=== PATIENT | female | born 1960 | race Caucasian/White ===

== ENCOUNTER 2020-11-27 13:03 | Outpatient (REF) | payer MEDICAID, SELFPAY ==
--- NOTE | 2020-11-27 | MM_ITS ---
EXAMINATION: MM SCREENING DIGITAL BREAST TOMOSYNTHESIS, BILATERAL CLINICAL INFORMATION: Screening. Asymptomatic. The lifetime risk of breast cancer based on the Tyrer-Cuzick Model is 5%. COMPARISON: Mammography: 09/17/2018, 09/13/2017, 07/16/2015 TECHNIQUE: Digital breast tomosynthesis is performed in both the craniocaudal and mediolateral oblique views along with computer-aided detection (CAD). Synthesized 2D images are generated from the tomosynthesis. FINDINGS: There are scattered areas of fibroglandular density (ACR BI-RADS breast composition Category b). Parenchymal pattern is similar to prior studies. Minor nodularity retroareolar left breast is stable. There is no developing density or interval mass or architectural abnormality. No abnormal calcifications. The axilla and skin contours are unremarkable. MM/MM tomosynthesis screening BI IMPRESSION: No significant changes from prior exams. ASSESSMENT: BI-RADS 2: Benign RECOMMENDATION: Routine annual mammography screening. This patient's information was entered into a reminder system with a target due date for their next mammogram.
== END 2020-11-27 13:04 | disposition home or self-care (01) ==
LOC: HO.MAMMO 13:03
PROVIDERS: Visit Provider Advanced Practice Midwife
DX: Z12.31 Encounter for screening mammogram for malignant neoplasm of breast (principal)
CPT/HCPCS: 77063; 77067

== ENCOUNTER 2024-04-22 08:49 | Outpatient (REF) | payer MEDICAID, SELFPAY ==
--- NOTE | ~2024-04-22 | US_ITS ---
EXAMINATION: US ABDOMEN LIMITED CLINICAL INFORMATION: Abnormal gallbladder evaluation in the past. COMPARISON: Ultrasound abdomen complete 11/28/2022. MRI abdomen 03/21/2017. TECHNIQUE: Real-time imaging of the right upper quadrant abdominal viscera. FINDINGS: PANCREAS: Normal head and body, tail is obscured by bowel gas. LIVER: The liver contour is normal. Parenchymal echogenicity is normal. There are a few complex cysts, the largest in each lobe is: Left lobe 1.7 x 0.9 x 1.9, right lobe 2.5 x 2.0 x 2.1 cm There is no intrahepatic biliary duct dilatation seen. GALLBLADDER: 2 stones are seen within the gallbladder. The gallbladder is physiologically distended. Multiple mobile gallstones are present. No evidence of gallbladder wall thickening or pericholecystic fluid. No sonographic Cunningham's sign COMMON BILE DUCT: Normal in caliber measuring 0.6 cm in diameter. RIGHT KIDNEY: There are multiple complex and simple cysts, the largest is a complex cyst in the mid kidney, measures 2.8 x 1.5 x 1.5 cm. 0.5 x 0.2 x 0.3 cm nonobstructing calculus is seen in the mid kidney. No hydronephrosis The kidney measures 11.7 cm in maximum dimension. FREE FLUID: None. US/US abdomen limited IMPRESSION: 1. Cholelithiasis. No evidence of cholecystitis. 2. Multiple complex hepatic cysts with septations accompany the polycystic disease process. 3. Polycystic kidney disease. Multiple right renal cysts, largest of which demonstrates septations. No mass lesion. 4. 0.5 cm nonobstructing calculus in the mid right kidney.
== END 2024-04-22 08:50 | disposition home or self-care (01) ==
LOC: HO.US 08:49
PROVIDERS: PCP Internal Medicine Geriatric Medicine; Visit Provider Student in an Organized Health Care Education/Training Program
DX: R93.2 Abnormal findings on diagnostic imaging of liver and biliary tract (principal)
CPT/HCPCS: 76705

== ENCOUNTER 2024-05-06 08:38 | Outpatient (REF) | payer MEDICAID, SELFPAY | END 2024-05-06 08:39 | disposition home or self-care (01) | LOC: HO.MAMMO 08:38 | PROVIDERS: PCP Student in an Organized Health Care Education/Training Program; Visit Provider Student in an Organized Health Care Education/Training Program | DX: Z12.31 Encounter for screening mammogram for malignant neoplasm of breast (principal) | CPT/HCPCS: 77063; 77067 ==

== ENCOUNTER → 2024-05-06 08:45 | Outpatient (BNV) | payer MEDICAID, SELFPAY | PROVIDERS: PCP Student in an Organized Health Care Education/Training Program; Visit Provider Radiology Diagnostic Radiology | DX: Z12.31 Encounter for screening mammogram for malignant neoplasm of breast (principal) | CPT/HCPCS: 77063; 77067 ==

== ENCOUNTER 2024-05-16 09:00 | Outpatient (REF) | payer MEDICAID, SELFPAY ==
[2024-05-16 11:49] LABS: Hematocrit 33.1 % (37.0-47.0); Hemoglobin 10.8 g/dl (12.0-16.0); Mean Corpuscular HGB Conc 32.6 g/dl (31.0-35.0); Mean Corpuscular Volume 88.7 fL (80.0-98.0); Mean Platelet Volume 13.5 fL (9.4-12.3); Platelet Count 214 X10*3/uL (160-400); Red Blood Count 3.73 X10*6/uL (4.20-5.50); Red Cell Distribution Width 12.6 % (11.0-16.0); White Blood Count 8.4 X10*3/uL (4.8-10.8)
[2024-05-16 11:56] LABS: Estimated Average Glucose 117 mg/dL; Hemoglobin A1c % 5.7 % (<6.0)
[2024-05-16 12:16] LABS: HBS Num1 132.48 mIU/mL (0-7.99); HBc Num1 0.07 S/CO (0.00-0.79); HBsAGNum1 0.26 S/CO (0.00-0.99); HIV AB/AG Nonreactive (Nonreactive); HIV Num 1 0.05 S/CO (0.00-0.99); Hepatitis B Core Antibody Nonreactive (Nonreactive); Hepatitis B Surface Antigen Negative (Negative); ~HepC Num1 0.08 S/CO (0.00-0.79); ~Hepatitis B Surface Antibody REACTIVE (Nonreactive); ~Hepatitis C Antibody Nonreactive (Nonreactive)
[2024-05-16 12:17] LABS: Syphilis Screen Nonreactive (Nonreactive)
[2024-05-16 12:23] LABS: Alanine Aminotransferase 18 U/L (0-31); Alkaline Phosphatase 84 U/L (39-117); Anion Gap 13 (12-20); Aspartate Amino Transferase 24 U/L (5-31); Bilirubin Total 0.4 mg/dL (0.0-1.0); Blood Urea Nitrogen 12 mg/dL (9-16); Calcium 9.7 mg/dL (8.4-10.2); Carbon Dioxide 26 mmol/L (22-29); Chloride 109 mmol/L (96-108); Cholesterol 108 mg/dL (<200); Estimated Glomerular Filt Rate > 60; Glucose Random 101 mg/dL (60-115); HDL Cholesterol 38 mg/dL (>40); LDL Cholesterol Calculated 49 mg/dL (<100); Lipase 49 U/L (8-78); Potassium 4.5 mmol/L (3.3-5.1); Sodium 143 mmol/L (135-145); TSH reflex Free T4 1.55 uIU/mL (0.32-4.0); Total Protein 7.6 g/dL (6.5-8.0); Triglycerides 105 mg/dL (<150)
[2024-05-16 13:15] LABS: CT PCR NOT DETECTED (Not Detect.); NG PCR NOT DETECTED (Not Detect.)
== END 2024-05-16 09:01 | disposition home or self-care (01) ==
LOC: HO.HHCL 09:00
PROVIDERS: Visit Provider Student in an Organized Health Care Education/Training Program
DX: Z00.00 Encounter for general adult medical examination without abnormal findings (principal); R74.8 Abnormal levels of other serum enzymes
CPT/HCPCS: 36415; 80053; 80061; 82306; 83036; 83690; 84443; 85027; 86704; 86706; 86780; 86803; 87340; 87389; 87491; 87591

== ENCOUNTER 2025-01-07 08:23 | Outpatient (AMB) | payer MEDICAID, SELFPAY ==
--- NOTE | 2025-01-07 08:25 | MHC.OFFVIS ---
Vital Signs 01/07/25 08:27 Height 5 ft 1 in Weight 103 lb 9.876 oz BMI 19.6 BP 190/84 H Blood Pressure Location Lt brachial Position Sitting Pulse 77 Intake Visit Reasons: Colonoscopy Screening Intake Note: [place] presents in the office as a new patient for a colonoscopy screening. CC: No concerns - the patient is here just for a screening. Allergies lisinopril [LISINOPRIL] Adverse Reaction (Intermediate, Unverified 01/07/25 08:28) COUGH HPI HPI Colonoscopy Screening: Details: LAST COLONOSCOPY 11/15/2018 Findings: Terminal Ileum ? Not evaluated Cecum ? Normal Ascending Colon ? Normal Transverse Colon - Normal Descending Colon ? Moderate diverticulosis Sigmoid Colon ? A 10-12 mm sessile polyp removed with hot snare and a 6-7 mm sessile polyp removed with a cold snare and not retrieved and moderate diverticulosis. Rectum ? Two 4-5 mm sessile polyps removed with a cold biopsy Ano-rectum - Normal Colon preparation: Good Impression and Post Procedure Diagnosis: Colonoscopy Findings: Four polyps removed - three were retrieved Moderate diverticulosis seen in the left colon Plan: Await pathology results Repeat Colonoscopy interval based on path results ? in 3-5 years if polyps are adenomatous and 10 years if polyps are hyperplastic. PATHOLOGY RESULTS Hyperplastic polyps TODAY'S VISIT 64 year old? female here today for pre colonoscopy screening.? Patient was sent to us by her PCP.? Last colonoscopy in 2018. Patient had to hyperplastic polyps and was told for return for colonoscopy in 10 years. Patient is anemic and was started on iron. Patient reports constipation after starting iron supplement. Patient reports that she only takes it couple times a week. Patient started to use stool softener to help her bowel movements. Patient reports occasional blood in his stool. Denies melena. Patient denies any gastrointestinal symptoms in the past or at present.? Denies any personal or family history of gastrointestinal disease, colon polyps, or CRC.? Denies history of difficulty with sedation or anesthesia in the past.? Negative for history of sleep apnea.? Denies any history of cardiac, renal, pulmonary, or hepatic disease.?? No history of infectious? diseases like hepatitis A, B, C, HIV or tuberculosis.? Patient is not on any anticoagulation COUNTS INCLUDE 234 BEDS AT THE [facility] Medical History Abnormal gallbladder ultrasound Anemia in chronic kidney disease Hypertensive disorder Polycystic kidney Stage 3 chronic kidney disease Osteoporosis Hyperpigmentation Rheumatoid arthritis involving both hands with positive rheumatoid factor Allergic rhinitis Hyperlipidemia Surgical History (Updated 01/07/25 @ 08:29 by KIMBERLEE Moser) History of partial hysterectomy Hx of colonoscopy Review of Systems Const Denies weight gain and Denies weight loss ENT Reports no additional complaints, Denies dysphagia and Denies odynophagia Card Reports no additional complaints Resp Reports no additional complaints GI Denies abdominal pain, Denies belching, Denies melena, Denies bloating, Reports hematochezia (Occasional), Denies change in bowel habits, Reports constipation (Occasional), Denies dysphagia, Denies excessive flatus, Denies dyspepsia, Denies heartburn, Denies diarrhea, Denies loose stools, Denies nausea, Denies odynophagia and Denies vomiting Reports no additional complaints Musc Reports no additional complaints Neuro Reports no additional complaints Psych Reports no additional complaints Endo Reports no additional complaints Physical Exam Vital Signs: Last Vital Signs Pulse 77 01/07/25 08:27 BP 190/84 H 01/07/25 08:27 BMI result Body Mass Index 19.6 Const General: healthy appearing and no acute distress Nutritional Appearance: obese Orientation/consciousness: patient oriented x3 Resp Effort & Inspection: normal respiratory effort, able to speak in complete sentences, no tracheal deviation and symmetric chest movement Auscultation: clear to auscultation bilaterally Cardio Rate: regular rate GI Inspection: Yes normal to inspection, No distended and Yes obesity Palpation (GI): Soft to palpation, not firm, nontender and No hepatosplenomegaly present Auscultation: normal bowel sounds General: Yes no CVA tenderness Back/Spine/Pelvis Back: no CVA tenderness Skin General skin exam: elasticity normal, turgor normal and dry skin Neuro General: patient oriented x3 Psych Appearance: grossly normal Mental Status: mental status grossly normal Assessment & Plan Assessment & Plan (1) Screen for colon cancer: Code(s): Z12.11 - Encounter for screening for malignant neoplasm of colon Plan Patient denies any cardiac or respiratory symptoms.? Patient reports constipation due to iron supplements. Patient was encouraged to takes iron supplements daily. Patient was encouraged to take stool softeners every day. Denies any issues with anesthesia in the past.? Denies any history of sleep apnea.? No history infectious diseases in the past or present.? Not on any anticoagulation therapy.? No family or personal history of colon cancer or polyps.? Patient denies melena, hematochezia, unintentional weight loss or ribbon like stools.? Discussed at length the pre-procedure,? prep, diet & medications as well as what to expect prior, during and after the procedure.?? Stressed the importance of good bowel prep.? Recommended the use of Vaseline or Calmoseptine OTC & baby wipes with bowel movements to promote comfort.? ?Patient verbalizes understanding and agrees to plan of care.? She was given the opportunity to ask questions and all questions answered.? We will see her after the procedure.? Medications: New bisacodyl (Dulcolax (bisacodyl)) take 4 tabs at noon the day before your colonoscopy 20 mg (4 x 5 mg) PO ONCE 1 day 4 tabs 0RF Z12.11 - Encounter for screening for malignant neoplasm of colon docusate sodium 100 mg PO BEDTIME 90 caps 3RF K59.00 - Constipation, unspecified polyethylene glycol 3350 (Miralax) As directed by gastroenterology department at [facility] 238 grams PO ONCE 238 grams 0RF Z12.11 - Encounter for screening for malignant neoplasm of colon Coding Level of Care Code New Pt Level 3 (96335) Diagnoses Screen for colon cancer Z12.11 Time Spent (min) 40 Comment 30 minutes spent with patient and additional 10 minutes spent reviewing her records
[2025-01-07 08:27] VITALS: BP 190/84; PULSE 77; BMI 19.6
--- OUTSIDE RECORDS SUMMARY | 2025-01-07 08:37 | XMS_ITS | Encounter Summary ---
Author Organization [facility] Address [address] [place] [address] Phone Care Team Providers Care Ballistics Tester Name Role Phone Gissell Johnson MD Primary Care Provider Unav ailable Encounter Details Date Type Department Care Team (Late st Contact Info) Description 06/26/2024 Documentation Only [facility] [address] [place] [address] Patricia Shah [address] [place] [address] Social History Tobacco Use Types Packs/Day Years Used Date Smoking Tobacco: Never Alcohol Use Standard Drinks/Week Comments No 0 (1 standard drink = 0.6 oz pur e alcohol) Comments Unknown Sex and Gender Information Value Date Recorded Sex Assigned at Not on file Legal Sex Female 4:34 PM EST Gender Identity Not on file Sexual Orientation Not on file documented as of this encounter Plan of Treatment Upcoming Encounters Date Type Department Care Team (Late st Contact Info) Description 03/12/2025 2:00 PM EDT Office Visit [facility] [address] [place] [address] Rashawn Dunn MD [address] [place] [address] [address] [place] [address] documented as of this encounter Visit Diagnoses Not on filedocumented in this encounter Care Teams Ballistics Tester Relationship Specialty Start Date End Date Gissell oJhnson MD PCP - General 09/24/19 documented as of this encounter
--- OUTSIDE RECORDS SUMMARY | 2025-01-07 08:37 | XMS_ITS | Encounter Summary ---
Author Organization [facility], Address [address] [place] [address] Phone Care Team Providers Care Ore Digger Name Role Phone Gissell Johnson MD Primary Care Provider Unav ailable Reason for Visit * Reason Comments Med Refill Encounter Details Date Type Department Care Team (Late st Contact Info) Description 12/03/2019 Refill [facility] [address] [place] [address] Yassine Cheng MD [address] [place] [address] Social History Tobacco Use Types Packs/Day Years [...] Visit [facility] [place], [address] [address] Rashawn Dunn MD [address] [place] [address] documented as of this encounter Visit Diagnoses Not on filedocumented in this encounter Care Teams Ore Digger Relationship Specialty Start Date End Date Gissell Johnson MD PCP - General 11/5/19 documented as of this encounter
--- OUTSIDE RECORDS SUMMARY | 2025-01-07 08:37 | XMS_ITS | Encounter Summary ---
Author Organization [facility] Address [address] [place] [address] Phone Care Team Providers Care Dry Color Tester Name Role Phone Gissell Johnson MD Primary Care Provider Unav ailable Encounter Details Date Type Department Care Team (Late st Contact Info) Description 06/26/2024 Documentation Only [facility] [address] [place] [address] Patricia Shah [address] [place] [address] Social History Tobacco Use Types [...] Visit [facility] [address] [place] [address] Rashawn Dunn MD [address] [place] [address] [place] [address] documented as of this encounter Visit Diagnoses Not on filedocumented in this encounter Care Teams Dry Color Tester Relationship Specialty Start Date End Date Gissell Johnson MD PCP - General 09/24/19 documented as of this encounter
--- OUTSIDE RECORDS SUMMARY | 2025-01-07 08:37 | XMS_ITS | Encounter Summary ---
Author Organization [facility] Address [address] [place] [address] Phone Care Team Providers Care Title Specialist Name Role Phone Gissell Johnson MD Primary Care Provider Unav ailable Encounter Details Date Type Department Care Team (Late st Contact Info) Description 06/26/2024 Documentation Only [facility] [address] [place] [address] Patricia Shah [address] [place] [address] Social History Tobacco Use Types [...] Visit [facility] [address] [place] [address] Rashawn Dunn MD [address] [place] [address] [place] [address] documented as of this encounter Visit Diagnoses Not on filedocumented in this encounter Care Teams Title Specialist Relationship Specialty Start Date End Date Gissell Johnson MD PCP - General 09/24/19 documented as of this encounter
--- OUTSIDE RECORDS SUMMARY | 2025-01-07 08:37 | XMS_ITS | Encounter Summary ---
Author Organization [facility] Address [address] [place] [address] Phone Care Team Providers Care Block Splitter Operator Name Role Phone Gissell Johnson MD Primary Care Provider Unav ailable Encounter Details Date Type Department Care Team (Late st Contact Info) Description 06/26/2024 Documentation Only [facility] [address] [place] [address] Patricia Shah [address] [place] [address] Social History Tobacco Use Types [...] Visit [facility] [address] [place] [address] Rashawn Dunn MD [address] [place] [address] [place] [address] documented as of this encounter Visit Diagnoses Not on filedocumented in this encounter Care Teams Block Splitter Operator Relationship Specialty Start Date End Date Gissell Johnson MD PCP - General 09/24/19 documented as of this encounter
--- OUTSIDE RECORDS SUMMARY | 2025-01-07 08:37 | XMS_ITS | Encounter Summary ---
Author Organization [facility] Address [address] [place] [address] Phone Care Team Providers Care Stevedoring Superintendent Name Role Phone Gissell Johnson MD Primary Care Provider Unav ailable Encounter Details Date Type Department Care Team (Late st Contact Info) Description 06/15/2022 Documentation Only [facility] [address] [place] [address] Yassine Cheng MD [address] [place] [address] [place] [address] Social History Tobacco Use Types [...] Visit [facility] [address] [place] [address] Rashawn Dunn MD [address] [place] [address] documented as of this encounter Visit Diagnoses Not on filedocumented in this encounter Care Teams Stevedoring Superintendent Relationship Specialty Start Date End Date Gissell Johnson MD PCP - General 09/24/19 documented as of this encounter
--- OUTSIDE RECORDS SUMMARY | 2025-01-07 08:38 | XMS_ITS | Clinical Summary ---
Author Organization [facility] Address [address] [place] [address] Care Team Providers Care Assembler Rubber Footwear Name Role Phone Unavailable Primary Care Provider Unavailabl e Source Comments PLEASE NOTE, if this patient is a minor, it may be UNLAWFUL to discuss sensitive information that is contained in these records (such as FAMILY PLANNING, MENTAL HEALTH or SUBSTANCE ABUSE) with the minor patient's parent or other person without the patient's specific authorization.[facility] Immunizations Name Administration Dates Next Due Moderna COVID-19 Vaccine, re d cap blue label, 12+ Primary Series 03/24/2021,02/24/2021 Social History Tobacco Use Types Packs/Day Years Used Date Smoking Tobacco: Never Assessed Social Connections Answer Date Recorded Social Connections and Isolation 0 02/24/2021 Financial Resource Strain Answer Date R ecorded Financial Resource Strain 0 2020 Stress Answer Date Recorded Stress 0 02/24/2021 Physical Activity Answer Date Recorded Physical Activity 0 02/24/2021 Food Insecurity Answer Date Recorded Food 0 02/24/2021 Transportation Needs Answer Date Record ed Transportation 0 02/24/2021 Housing Stability Answer Date Recorded Housing 0 02/24/2021 Safety and Environment Answer Date Saturnino rded Safety 0 02/24/2021 Utilities Answer Date Recorded Utilities 0 02/24/2021 Employment Answer Date Recorded Employment 0 02/24/2021 Comments Unknown Sex and Gender Information Value Date Recorded Sex Assigned at Not on file Legal Sex Female 8:49 AM PDT Gender Identity Not on file Sexual Orientation Not on file Plan of Treatment Health Maintenance Due Date Last Done Comments Diabetes Screening 1962 HPV Screening 1962 Hepatitis C Screening 1962 Lipid Screening 1962 Pap + HPV 1962 Tobacco Screening 1962 HIV Screening 1977 Hypertension Screening (#1) 1980 Cervical Cancer Screening 1983 Pap Smear 1983 Breast Cancer Screening (Mammogram) 2002 CT Colonography 2007 Colonoscopy 2007 Colorectal Cancer Screening 2007 FIT/gFOBT 2007 Fecal DNA 2007 Flexible Sigmoidoscopy 2007 Imm-Zoster, Recombinant (1 of 2) 2012 Imm-DTaP/Tdap/Td (2 - Td or Tdap) 02/20/2022 012, 11/26/2004 [id number] (3 season) 2024 021, 02/24/2021 Imm-Influenza (#1) 2024 08/17/2020, 1 12/09/2017, 08/13/2014, Additional history exists Alcohol and Drug Screen 11/20/2024 Depression Annual Screen 11/20/2024 Cervical Ablation/Cold-Knife Conization Discontinued Cervical Cryotherapy Discontinued Colposcopy Discontinued Endometrial Biopsy Discontinued Excision/Leep Discontinued HPV Genotyping Discontinued Vaginal Pap Discontinued Vulvoscopy Discontinued Insurance [address] [employer]
--- OUTSIDE RECORDS SUMMARY | 2025-01-07 08:38 | XMS_ITS | Encounter Summary ---
Author Organization [facility] Address [address] [place] [address] Phone Care Team Providers Care Primary Care Pediatrician Name Role Phone Gissell Johnson MD Primary Care Provider Unav ailable Encounter Details Date Type Department Care Team (Late st Contact Info) Description 03/18/2024 Orders Only [facility] [address] [place] [address] Wilson Subramanian PA Chronic kidney disease stage 1; Hypertensive disorder; Adult polycystic kidney; Hypertriglyceridemia Social History Tobacco Use Types Packs/Day Years [...] Visit [facility] [address] [place] [address] Rashawn Dunn MD [address] [place] [address] [place] [address] documented as of this encounter Visit Diagnoses Diagnosis Chronic kidney disease stage 1 Hypertensive disorder Adult polycystic kidney Hypertriglyceridemia documented in this encounter Care Teams Primary Care Pediatrician Relationship Specialty Start Date End Date Gissell Johnson MD PCP - General 09/24/19 documented as of this encounter
--- OUTSIDE RECORDS SUMMARY | 2025-01-07 08:38 | XMS_ITS | Clinical Summary ---
Author Organization [facility], Address [address] [place] [address] [place] [address] Phone Care Team Providers Care Early Childhood Educator Aide Name Role Phone Gissell Johnson MD Primary Care Provider Unav ailable Allergies Active Allergy Reactions Criticality Noted Date Comments Lisinopril 11/23/2020 Medications metoprolol succinate XL (TOPROL-XL) 100 MG 24 hr tablet Take 150 mg by mouth 1 (one) time each day Do not crush or chew. Active alendronate (FOSAMAX) 70 MG tablet PLEASE SEE ATTACHED FOR DETAILED DIRECTIONS 0 Active folic acid (FOLVITE) 1 MG tablet Take 1,000 mcg by mouth daily 0 Active leflunomide (ARAVA) 20 MG tablet Take 20 mg by mouth daily 0 Active amLODIPine (NORVASC) 2.5 MG tablet Take 2.5 mg by mouth 1 (one) time each day 1 Active aspirin (ST JENNIFER) 81 MG EC tablet Take 81 mg by mouth 1 (one) time each day Active simvastatin (ZOCOR) 40 MG tablet Take 40 mg by mouth 1 (one) time each day in the evening 3 Active tocilizumab (Actemra) 80 MG/4ML solution Infuse into a venous catheter every 28 (twenty-eight) days Active methotrexate 2.5 MG tablet TAKE 5 TABLETS BY MOUTH ONCE A WEEK DIRECTED. WITH LABS EVERY OTHER MONTH 3 Active omega-3 acid ethyl esters (LOVAZA) 1 g capsule Take 4 capsules (4 g total) by mouth in the morning and 4 capsules (4 g total) in the evening. 720 capsule 3 4 01/24/20 25 Active cholecalciferol (Vitamin D3) 50 MCG (2000 UT) tablet Take 1 tablet (2,000 Units total) by mouth 1 (one) time each day 90 tablet 3 4 Active losartan (COZAAR) 50 MG tablet TAKE 1 TABLET(50 MG) BY MOUTH EVERY DAY 90 tablet 3 4 Active Active Problems Problem Noted Date Diagnosed Date Chronic kidney disease stage 1 07/31/2023 Chronic kidney disease, stage 2 (mild) 3 Hypertriglyceridemia 01/24/2023 Anemia 11/24/2022 07/31/2023 Type 2 diabetes mellitus 11/24/2022 023 Adult polycystic kidney 11/11/2019 Hypertensive disorder 11/11/2019 Stage 3a chronic kidney disease 11/11/2019 Dyslipidemia 07/06/2018 07/31/2023 Bilateral rheumatoid arthritis of hands 10/26/20 15 07/31/2023 Resolved Problems Problem Noted Date Diagnosed Date Resolved Date Hypertensive heart and chron ic kidney disease without heart failure, with stage 1 through stage 4 chronic kidney disease, or unspecified chronic kidney disease 11/23/202006/03 Immunizations Name Administration Dates Next Due Hepatitis B 07/23/2020, 6,05/13/2016,03/24,02/10/2015 Influenza Split 10/07/2013 Influenza, MDCK, Quadrivalen t, with preservative 08/17/2020 Influenza, Quadrivalent, Pre servative Free 09/23/2022,09/09/2021 Influenza, Quadrivalent, Wit h Preservative 10/09/2018 Influenza, Unspecified 08/20/2021,08/13/2014, Moderna SARS-COV-2 03/24/2021,02/24/2021 Pneumococcal Polysaccharide 11/26/2004, 8 Td 06/28/2022,11/26/2004 Tdap 02/21/2012 Family History Medical History Relation Comments Hypertension Father Kidney disease Father Diabetes Mother Relation Status Comments Father Mother Social History Tobacco Use Types Packs/Day Years Used Date Smoking Tobacco: Never Alcohol Use Standard Drinks/Week Comments No 0 (1 standard drink = 0.6 oz pur e alcohol) Comments Unknown Sex and Gender Information Value Date Recorded Sex Assigned at Not on file Legal Sex Female 4:34 PM EST Gender Identity Not on file Sexual Orientation Not on file Last Filed Vital Signs Vital Sign Reading Time Taken Comments Blood Pressure 130/72 06/26/2024 3:04 PM EDT Pulse 75 11/18/2019 3:40 PM EST Temperature - - Respiratory Rate 16 11/18/2019 3:40 PM EST Oxygen Saturation - - Inhaled Oxygen Concentration - - Weight 46.3 kg (102 lb) 06/26/2024 3:04 PM EDT Height 154.9 cm (5' 1 ) 06/26/2024 3:04 PM EDT Body Mass Index 19.27 06/26/2024 3:04 PM EDT Plan of Treatment Upcoming Encounters Date Type Department Care Team (Late st Contact Info) Description 03/12/2025 2:00 PM EDT Office Visit [facility], [address] [place] [address] Rashawn Dunn MD [address] [place] [address] [place] [address] Health Maintenance Due Date Last Done Comments Breast Cancer Screening 1962 Colorectal Cancer Screening: Annual FOBT 2011 Colorectal Cancer Screening: Colonoscopy 2011 Colorectal Cancer Screening: Sigmoidoscopy 2011 Diabetes: Ophthalmology Exam 01/24/2023, 03/20/2017, 02/16/2016, Additional history exists Diabetes: Pedal Pulse Checked 01/24/2023 Diabetes: Sensory Foot Exam 01/24/2023 Diabetes: Visual Foot Exam 01/24/2023 Influenza Vaccine (#1) 2024 3, 09/23/2022, 09/09/2021, Additional history exists Diabetes: Hemoglobin A1C 08/16/2024 024, 07/31/2023, 07/26/2022, Additional history exists Hepatitis B Vaccine Aged Out 07/23/2020, 06/20/2016, 05/13/2016, Additional history exists No longer eligible based on patient's age to complete this topic Pneumococcal Vaccine: Pediatrics (0 to 5 Years) and At-Risk Patients (6 to 64 Years) Completed 03/19/2024, 11/26/2004, 07/21/1998 Procedures Procedure Name Priority Date/Time Associated Diagnosis Comments HEMOGLOBIN A1C Routine 07/31/2023 3:00 PM EDT from Last 3 Months or Most Recently Relevant to Health Maintenance Results * Hemoglobin A1c (07/31/2023 3:00 PM EDT) Hemoglobin A1C 5.5 (4.0-5.6) % [facility] Comment: MONITORING: In known diabetic patients, hemoglobin A1c targets should be discussed with health care provider. DIAGNOSTIC USE: ??The [place] Diabetes Association (ADA) and the World Health Organization (WHO) recommend the use of HbA1c to diagnose diabetes using a threshold of 6.5%. Patients who have an HbA1c between 5.7% and 6.4% are considered at increased risk for developing diabetes in the future. CAUTION: Falsely low HbA1c results may be observed in patients with hemolytic anemia, homozygous forms of abnormal hemoglobin (e.g. SS, CC, SC), , recent blood loss or hemoglobin F greater than 7%. Fructosamine may be used as an alternate test in these cases. REFERENCE: ADA: Standards of Medical Care in Diabetes 2020, The Journal of Clinical and Applied Research and Education Volume 43, Supplement 1 Testing performed or reported by [facility], a Service of [facility], [address] [place] [address] Aquiles Turpin MD, Weather Strip Mechanic [facility]# [id number] 07/31/2023 3:00 PM EDT 07/31/2023 3:02 PM EDT us [facility] BLOOD ORDERABLES Final Re sult [facility] from Last 3 Months or Most Recently Relevant to Health Maintenance Insurance MEDICAID [place] Care Teams Early Childhood Educator Aide Relationship Specialty Start Date End Date Gissell Johnson MD PCP - General 09/24/19
--- OUTSIDE RECORDS SUMMARY | 2025-01-07 08:38 | XMS_ITS | Encounter Summary ---
Author Organization [facility] Address [address] [place] [address] Phone Care Team Providers Care Labor Law Professor Name Role Phone Gissell Johnson MD Primary Care Provider Unav ailable Encounter Details Date Type Department Care Team (Late st Contact Info) Description 06/26/2024 Documentation Only [facility] [address] [place] [address] Patricia Shah [address] [place] [address] Social History Tobacco Use Types [...] Visit [facility] [address] [place] [address] Rashawn Dunn MD [address] [place] [address] [place] [address] documented as of this encounter Visit Diagnoses Not on filedocumented in this encounter Care Teams Labor Law Professor Relationship Specialty Start Date End Date Gissell Johnson MD PCP - General 09/24/19 documented as of this encounter
== END 2025-01-07 09:08 | disposition home or self-care (01) ==
PROVIDERS: PCP Student in an Organized Health Care Education/Training Program; Visit Provider Nurse Practitioner Family
DX: Z01.818 Encounter for other preprocedural examination (principal); Z12.11 Encounter for screening for malignant neoplasm of colon; Z86.0102 Personal history of hyperplastic colon polyps
CPT/HCPCS: 99202

== ENCOUNTER → 2025-01-07 08:23 | Outpatient (BNVA) | payer MEDICAID, SELFPAY | PROVIDERS: PCP Student in an Organized Health Care Education/Training Program; Visit Provider Nurse Practitioner Family | DX: Z01.818 Encounter for other preprocedural examination (principal); K57.90 Diverticulosis of intestine, part unspecified, without perforation or abscess without bleeding | CPT/HCPCS: 99212 ==

== ENCOUNTER 2025-04-28 08:00 | Outpatient (REF) | payer MEDICAID, SELFPAY ==
--- OUTSIDE RECORDS SUMMARY | 2025-04-28 08:03 | XMS_ITS | Encounter Summary ---
Author Organization [employer] Address [address] [place] [address] [address] [place] [address] Care Team Providers Care Water Systems Engineer Name Role Phone Rosemarie Shanks Primary Care Provider [phone] Encounter Details Date Type Department Care Team ([facility] Contact Info) Description 02/05/2024 Telephone [facility] [address] [place] [address] [phone] Rosemarie Shanks ANP [address] [place], [place] [phone] Social History Tobacco Use Types Packs/Day Years Used Date Smoking Tobacco: Never Passive Smoke Exposure: Never Smokeless Tobacco: Never Alcohol Use Standard Drinks/Week Comments Never 0 (1 standard drink = 0.6 oz pur e alcohol) Comments Unknown Sex and Gender Information Value Date Recorded Sex Assigned at Female 09/19/2022 10:15 AM EDT Legal Sex Female 10:15 AM EDT Gender Identity Female 09/19/2022 10:15 AM EDT Sexual Orientation Straight 09/19/2022 10 :15 AM EDT documented as of this encounter Plan of Treatment Upcoming Encounters Date Type Department Care Team (Late Contact Info) Description 04/28/2025 9:30 AM EDT Clinical Support [facility] [address] [place] [phone] documented as of this encounter Visit Diagnoses Not on filedocumented in this encounter Care Teams Water Systems Engineer Relationship Specialty Start Date End Date Rosemarie Shanks ANP [address] [place] [phone] PCP - General Family Medicine 07/12/21 documented as of this encounter
== END 2025-04-28 08:01 | disposition home or self-care (01) ==
LOC: HO.SH 08:00
PROVIDERS: Visit Provider Nurse Practitioner Primary Care
DX: Z01.118 Encounter for examination of ears and hearing with other abnormal findings (principal); H93.13 Tinnitus, bilateral
CPT/HCPCS: 92557; 92567

== ENCOUNTER 2025-05-29 12:04 | Outpatient (REF) | payer MEDICAID, SELFPAY ==
--- NOTE | ~2025-05-29 | XR_ITS ---
EXAMINATION: XR LUMBOSACRAL SPINE CLINICAL INFORMATION: acute worsening LBP and tailbone pain COMPARISON: None available. TECHNIQUE: AP and lateral views FINDINGS: Rudimentary rib on the left T12. Small marginal osteophyte formation at multiple levels throughout the axial skeleton. Focal calcification in the anterior intervertebral disc T11-12. Spina bifida occulta S1, congenital. No acute cortical disruption or malalignment. No lytic or blastic lesions. XR/XR lumbar spine 2-3V IMPRESSION: Mild multilevel thoracolumbar spondylosis. Electronically signed by: Ganga Lemon MD 05/29/2025 12:32 PM EDT
--- NOTE | ~2025-05-29 | XR_ITS ---
EXAMINATION: XR SACRUM AND COCCYX CLINICAL INFORMATION: acute worsening LBP and tailbone pain COMPARISON: None available. TECHNIQUE: AP and lateral views. FINDINGS: No acute cortical disruption. No lytic or blastic lesions. Spina bifida occulta S1, congenital. XR/XR sacrum coccyx min 2V IMPRESSION: No acute fracture. Electronically signed by: Ganga Lemon MD 05/29/2025 12:33 PM EDT
--- OUTSIDE RECORDS SUMMARY | 2025-05-29 12:30 | XMS_ITS | Encounter Summary ---
Author Organization [facility] Address [address] [place] [address] [address] [place] [address] Care Team Providers Care Meter Tester Primary Name Role Phone Rosemarie Shanks Primary Care Provider [phone] Encounter Details Date Type Department Care Team (Late st Contact Info) Description 02/05/[address] [address] Rosemarie Shanks ANP [address] [place] [phone] Social History Tobacco Use Types Packs/Day Years [...] Care Team (Late st Contact Info) Description 07/22/2025 9:15 AM EDT Office Visit [facility] [address] [place] [address] Rosemarie Shanks ANP [address] [place] [phone] documented as of this encounter Visit Diagnoses Not on filedocumented in this encounter Care Teams Meter Tester Primary Relationship Specialty Start Date End Date Rosemarie Shanks ANP [address] [place] [phone] PCP - General Family Medicine 07/12/21 documented as of this encounter
--- OUTSIDE RECORDS SUMMARY | 2025-05-29 12:30 | XMS_ITS | Encounter Summary ---
Author Organization [facility] Address [address] [place] [address] Phone Care Team Providers Care Product Marketing Consultant Name Role Phone Gissell Johnson MD Primary Care Provider Unav ailable Encounter Details Date Type Department Care Team (Late Contact Info) Description 03/14/2025 Documentation Only [facility] [address] [place] [address] Aishwarya Sullivan [place] [address] [place] [address] Social History Tobacco Use Types [...] Care Team (Late st Contact Info) Description 07/01/2025 10:30 AM EDT Office Visit [facility] [address] [place] [address] Rashawn Dunn MD [address] [place] [address] [place] [address] documented as of this encounter Visit Diagnoses Not on filedocumented in this encounter Care Teams Product Marketing Consultant Relationship Specialty Start Date End Date Gissell Johnson MD PCP - General 09/24/19 documented as of this encounter
--- OUTSIDE RECORDS SUMMARY | 2025-05-29 12:30 | XMS_ITS | Clinical Summary ---
Author Organization [facility] Address [address] [place] [address] Care Team Providers Care New Grad Rn Name Role Phone Unavailable Primary Care Provider Unavailabl e Source Comments PLEASE NOTE, if this patient is a minor, it may be UNLAWFUL to discuss sensitive information that is contained in these records (such as FAMILY PLANNING, MENTAL HEALTH or SUBSTANCE ABUSE) with the minor patient's parent or other person without the patient's specific authorization.[facility] Immunizations Immunization Administration Dates Next Due Moderna COVID-19 Vaccine, [...] Health Maintenance Due Date Last Done Comments Anxiety Screening 1962 Diabetes Screening 1962 HPV Screening 1962 Hepatitis C Screening 1962 Lipid Screening 1962 Pap + HPV 1962 Tobacco Screening 1962 HIV Screening 1977 Hypertension Screening (#1) 1980 Cervical Cancer Screening 1983 Pap Smear 1983 Breast Cancer Screening (Mammogram) 2002 CT Colonography 2007 Colonoscopy 2007 Colorectal Cancer Screening 2007 FIT/gFOBT 2007 Fecal DNA 2007 Flexible Sigmoidoscopy 2007 Imm-Pneumococcal 50+ (2 of 2 - PCV) 2012 11/26/2004, 07/21/1998 Imm-Zoster, Recombinant (1 of 2) 2012 Imm-DTaP/Tdap/Td (2 - Td or Tdap) 02/20/2022 012, 11/26/2004 [id number] ( season) 2024 021, 02/24/2021 Alcohol and Drug Screen 11/20/2024 Depression Annual Screen 11/20/2024 Imm-Influenza (#1) 2025 08/17/2020, 1 12/09/2017, 08/13/2014, Additional history exists Cervical Ablation/Cold-Knife Conization Discontinued Cervical Cryotherapy Discontinued Colposcopy Discontinued Endometrial Biopsy Discontinued Excision/Leep Discontinued HPV Genotyping Discontinued Vaginal Pap Discontinued Vulvoscopy Discontinued Insurance [facility]
[2025-05-29 17:26] LABS: Hemoglobin 12.6 g/dl (12.0-16.0); Mean Corpuscular Volume 86.1 fL (80.0-98.0); NRBC Abs Auto 0.000 X10*3/uL (0.0-0.012); NRBC Pct Auto 0.0 /100WBC (0.0-0.2); SCAN SMEAR FLAG 1
[2025-05-29 17:28] LABS: Hematocrit 37.7 % (37.0-47.0); Imm Gran Abs Auto 0.03 X10*3/uL (0.00-0.03); Imm Gran Pct Auto 0.4 % (0.0-0.4); Lymphocytes Absolute Auto 1.9 X10*3/uL (1.2-4.9); MANUAL DIFF FLAG SCAN; Mean Corpuscular HGB Conc 33.4 g/dl (31.0-35.0); Mean Corpuscular Hemoglobin 28.8 pg (27.0-33.0); Platelet Count 153 X10*3/uL (160-400); Red Blood Count 4.38 X10*6/uL (4.20-5.50); White Blood Count 7.1 X10*3/uL (4.8-10.8)
[2025-05-29 17:35] LABS: Hemoglobin A1C 130.3294 umol/L; Total Hemoglobin (HGBA1C) 3332.1570 umol/L
[2025-05-29 17:37] LABS: Anion Gap 13 (12-20); Blood Urea Nitrogen 13 mg/dL (9-16); Calcium 9.4 mg/dL (8.4-10.2); Carbon Dioxide 25 mmol/L (22-29); Chloride 110 mmol/L (96-108); Estimated Glomerular Filt Rate > 60; Iron 82 mcg/dL (30-160); Percent Iron Saturation 26 % (15-50); Potassium 4.5 mmol/L (3.3-5.1); Sodium 143 mmol/L (135-145); Total Iron Binding Capacity 316 mcg/dL (228-428); Unsaturated Iron Binding 234 ug/dL
[2025-05-29 18:05] LABS: PLT ABN DIST 1
[2025-05-29 18:07] LABS: Microalbum/Creatinine Ratio Ur 142.3 ug/mg cr (<30)
== END 2025-05-29 12:05 | disposition home or self-care (01) ==
LOC: HO.HHCX 12:04
PROVIDERS: Nurse Practitioner Primary Care; Visit Provider Family Medicine
DX: M54.50 Low back pain, unspecified (principal); I12.9 Hypertensive chronic kidney disease with stage 1 through stage 4 chronic kidney disease, or unspecified chronic kidney disease; N18.30 Chronic kidney disease, stage 3 unspecified; D63.1 Anemia in chronic kidney disease; R73.09 Other abnormal glucose
CPT/HCPCS: 36415; 72100; 72220; 80048; 82043; 82570; 83036; 83540; 85025

== ENCOUNTER → 2025-05-29 12:05 | Outpatient (BNV) | payer MEDICAID, SELFPAY | PROVIDERS: Visit Provider Radiology Diagnostic Radiology | DX: M54.50 Low back pain, unspecified (principal); M53.3 Sacrococcygeal disorders, not elsewhere classified | CPT/HCPCS: 72100; 72220 ==

== ENCOUNTER 2025-05-29 13:01 | Outpatient (REF) | payer MEDICAID, SELFPAY | END 2025-05-29 13:02 | disposition home or self-care (01) | LOC: HO.HHCL 13:01 | PROVIDERS: PCP Nurse Practitioner Primary Care; Visit Provider Family Medicine | DX: Z13.89 Encounter for screening for other disorder (principal) ==

== ENCOUNTER 2025-08-04 06:00 | Outpatient (RCR) | payer MEDICAID, SELFPAY | END 2025-08-14 07:21 | disposition home or self-care (01) | LOC: HO.PTCHIC 06:00 | PROVIDERS: PCP Nurse Practitioner Primary Care; Visit Provider Family Medicine | DX: M54.50 Low back pain, unspecified (principal) | CPT/HCPCS: 97110; 97162 ==